=== PATIENT | female | born 1975 | race Caucasian/White ===

== ENCOUNTER 2018-08-24 22:35 | Emergency (ER) | payer SELFPAY ==
--- NOTE | 2018-08-25 00:17 | ER Document Report ---
ED General - General Chief Complaint: Head Injury without LOC Stated Complaint: HEAD INJURY Time Seen by Provider: 08/24/18 23:28 Mode of Arrival: Ambulatory Information source: Patient Notes: 43-year-old female presents emergency department with complaints of a headache. Patient states that around 8 PM she was sitting at a table when she bent down and hit her forehead on the table. She denies any loss of consciousness. She states that immediately she began having a throbbing sensation to her forehead. Patient states that she went home and took some Motrin around 845PM. She states that she began having some blurred vision and feeling nauseated. The headache has continued. Patient denies any speech changes, numbness, tingling, weakness, difficulty ambulating. She states that she is on aspirin but no blood thinners. TRAVEL OUTSIDE OF THE [place] IN LAST 30 DAYS: No - HPI Onset: This evening Onset/Duration: Sudden Quality of pain: Achy Severity: Mild Pain Level: 2 Associated symptoms: Other - blurred vision Exacerbated by: Denies Relieved by: Denies Similar symptoms previously: No Recently seen / treated by doctor: No - Related Data Allergies/Adverse Reactions: cetirizine [From [employer]] Allergy (Verified 08/24/18 23:39) Past Medical History - General Information source: Patient - Social History Smoking Status: Former Smoker Chew tobacco use (# tins/day): No Frequency of alcohol use: Occasional Drug Abuse: None Family History: Reviewed & Not Pertinent Patient has suicidal ideation: No Patient has homicidal ideation: No Pulmonary Medical History: Reports: Hx Asthma Renal/ Medical History: Denies: Hx Peritoneal Dialysis GI Medical History: Reports: Hx Gastroesophageal Reflux Disease Past Surgical History: Reports: Hx Orthopedic Surgery Review of Systems - Review of Systems Constitutional: No symptoms reported EENT: Blurred vision Cardiovascular: No symptoms reported Respiratory: No symptoms reported Gastrointestinal: Nausea Genitourinary: No symptoms reported Female Genitourinary: No symptoms reported Musculoskeletal: No symptoms reported Skin: No symptoms reported Hematologic/Lymphatic: No symptoms reported Neurological/Psychological: No symptoms reported -: Yes All other systems reviewed and negative Physical Exam - Vital signs Vitals: Temp Pulse Resp BP Pulse Ox 98.1 F 75 18 130/86 H 98 08/24/18 22:59 08/24/18 22:59 08/24/18 22:59 08/24/18 22:59 08/24/18 22:59 - Notes Notes: PHYSICAL EXAMINATION: GENERAL: Well-appearing, well-nourished and in no acute distress. HEAD: normocephalic. Pain to the center of the forehead. EYES: Pupils equal round and reactive to light, extraocular movements intact, conjunctiva are normal. ENT: Nares patent, oropharynx clear without exudates. Moist mucous membranes. NECK: Normal range of motion, supple without lymphadenopathy LUNGS: Breath sounds clear to auscultation bilaterally and equal. No wheezes rales or rhonchi. HEART: Regular rate and rhythm without murmurs ABDOMEN: Soft, nontender, nondistended abdomen. No guarding, no rebound. No masses appreciated. Female : deferred Musculoskeletal: Normal range of motion, no pitting or edema. No cyanosis. NEUROLOGICAL: Cranial nerves grossly intact. Normal speech, normal gait. Normal sensory, motor exams PSYCH: Normal mood, normal affect. SKIN: Warm, Dry, normal turgor, no rashes or lesions noted. - HEENT Visual acuity- Right eye: 20/200 Visual acuity- Left eye: 20/200 Visual acuity- Both eyes: 20/200 Corrective lenses worn: No Course - Re-evaluation Re-evalutation: 08/25/18 00:[address] shows left maxillary sinusitis. No acute process. Patient is neurologically intact. Visual acuity obtained and is 20/200 in both eyes. I instructed the patient to followup with ophthalmology and her primary care physician this week, to take [id number] medication as needed for symptom relief, and to return for worsening symptoms. - Vital Signs Vital signs: Temp Pulse Resp BP Pulse Ox 98.1 F 75 18 130/86 H 98 08/24/18 22:59 08/24/18 22:59 08/24/18 22:59 08/24/18 22:59 08/24/18 22:59 Discharge - Discharge Clinical Impression: Concussion Qualifiers: Encounter type: initial encounter Loss of consciousness presence/duration: without LOC Qualified Code(s): S06.0X0A - Concussion without loss of consciousness, initial encounter Condition: Good Disposition: HOME, SELF-CARE Instructions: Concussion (OM) Referrals: CARLEY MARTINEZ MD [ACTIVE STAFF] - Follow up as needed
--- NOTE | 2018-08-25 00:24 | RADIOLOGY REPORT (SQ) ---
EXAM DESCRIPTION: CT HEAD WITHOUT IV CONTRAST COMPLETED DATE/TME: 08/24/2018 23:36 CLINICAL HISTORY: 43 years Female, head trauma, blurred vision COMPARISON: None. TECHNIQUE: No contrast. Coronal and sagittal reformat. This exam was performed according to our departmental dose-optimization program, which includes automated exposure control, adjustment of the mA and/or kV according to patient size and/or use of iterative reconstruction technique. FINDINGS: No hemorrhage or infarct. No mass, mass effect, or midline shift. Moderate left maxillary fluid. Brain and extra-axial structures appear otherwise intact. IMPRESSION: Left maxillary sinusitis with acute inflammatory component (air-fluid level). Else, unremarkable CT of the head.
[2018-08-25] MEDS ORDERED: KETOROLAC TROMETHAMINE 60 MG/2 ML SDV IM ONE (00:29)
[2018-08-25 00:42] VITALS: BP 121/74
== END 2018-08-25 00:51 | disposition home or self-care (01) ==
LOC: ER 22:35
DX: S06.0X0A Concussion without loss of consciousness, initial encounter (principal); H53.8 Other visual disturbances; R11.0 Nausea; W22.03XA Walked into furniture, initial encounter; Y93.89 Activity, other specified; J32.0 Chronic maxillary sinusitis; J45.909 Unspecified asthma, uncomplicated; Z88.8 Allergy status to other drugs, medicaments and biological substances; Z87.891 Personal history of nicotine dependence
CPT/HCPCS: 99283; 96372; 70450; J1885

== ENCOUNTER 2018-09-14 21:56 | Emergency (ER) | payer SELFPAY ==
[2018-09-14 22:23] LABS: ABSOLUTE LYMPHOCYTES (AUTO) 1.1 10^3/uL (0.5-4.7); ABSOLUTE MONOCYTES (AUTO) 0.6 10^3/uL (0.1-1.4); ABSOLUTE NEUT (AUTO) 8.6 10^3/uL (1.7-8.2); BASOPHILS % (AUTO) 0.2 % (0-2); EOSINOPHILS % (AUTO) 0.3 % (0-6); HEMATOCRIT 35.6 % (36.0-47.0); HEMOGLOBIN 12.7 g/dL (12.0-15.5); LYMPHOCYTES % (AUTO) 10.6 % (13-45); MEAN CORPUSCULAR HEMOGLOBIN 31.9 pg (27.0-33.4); MEAN CORPUSCULAR HGB CONC 35.6 g/dL (32.0-36.0); MEAN CORPUSCULAR VOLUME 90 fl (80-97); MONOCYTES % (AUTO) 6.2 % (3-13); PLATELET COUNT 172 10^3/uL (150-450); RED BLOOD COUNT 3.97 10^6/uL (3.72-5.28); RED CELL DISTRIBUTION WIDTH 14.1 % (11.5-14.0); SEGMENTED NEUTROPHILS % (AUTO) 82.7 % (42-78); TOTAL CELLS COUNTED % (AUTO) 100 %; WHITE BLOOD COUNT 10.4 10^3/uL (4.0-10.5)
[2018-09-14] MEDS ORDERED: ASPIRIN 81 MG TABLET, CHEWABLE PO ONE (22:34)
[2018-09-14] MEDS ORDERED: ONDANSETRON 4 MG TAB.RAPDIS PO ONE (22:35)
--- NOTE | 2018-09-14 22:38 | ER Document Report ---
ED Medical Screen (RME) - General Chief Complaint: Chest Pain Stated Complaint: CHEST PAIN Time Seen by Provider: 09/14/18 22:34 Notes: 43-year-old female coming in today with sudden onset of left-sided chest pain that radiates down her left arm, left shoulder, left neck. Also some vomiting. Symptoms started at rest. No shortness of breath. Per patient, small heart attack when she was younger. I have treated and performed a rapid initial assessment of this patient. A comprehensive ED assessment and evaluation of the patient, analysis of test results and completion of medical decision making process will be conducted by additional ED providers. PHYSICAL EXAMINATION: GENERAL: Ill-appearing LUNGS: Breath sounds clear to auscultation bilaterally and equal. No wheezes rales or rhonchi. HEART: Regular rate and rhythm without murmurs, rubs, gallops. Neuro: No focal deficits TRAVEL OUTSIDE OF THE [place] IN LAST 30 DAYS: No - Related Data Allergies/Adverse Reactions: cetirizine [From [employer]] Allergy (Verified 08/24/18 23:39) Past Medical History Pulmonary Medical History: Reports: Hx Asthma Renal/ Medical History: Denies: Hx Peritoneal Dialysis GI Medical History: Reports: Hx Gastroesophageal Reflux Disease Past Surgical History: Reports: Hx Orthopedic Surgery Physical Exam - Vital signs Vitals: Temp Pulse Resp BP 97.6 F 66 14 100/60 09/14/18 22:09 09/14/18 22:09 09/14/18 22:09 09/14/18 22:09 Course - Vital Signs Vital signs: Temp Pulse Resp BP Pulse Ox 97.8 F 86 18 105/63 97 09/14/18 22:32 09/14/18 22:32 09/14/18 22:32 09/14/18 22:32 09/14/18 22:32 - Laboratory Result Diagrams: 09/14/18 22:10 09/14/18 22:10
[2018-09-14 23:14] LABS: ALANINE AMINOTRANSFERASE 20 U/L (9-52); ALBUMIN 3.7 g/dL (3.5-5.0); ALKALINE PHOSPHATASE 67 U/L (38-126); ANION GAP 8 (5-19); ASPARTATE AMINO TRANSFERASE 61 U/L (14-36); BILIRUBIN,DIRECT 0.2 mg/dL (0.0-0.4); BILIRUBIN,TOTAL 0.8 mg/dL (0.2-1.3); BLOOD UREA NITROGEN 16 mg/dL (7-20); CALCIUM 8.6 mg/dL (8.4-10.2); CARBON DIOXIDE 24 mmol/L (22-30); CHLORIDE 105 mmol/L (98-107); GLUCOSE 115 mg/dL (75-110); POTASSIUM 4.1 mmol/L (3.6-5.0); SODIUM 136.9 mmol/L (137-145); TOTAL PROTEIN 6.2 g/dL (6.3-8.2)
[2018-09-14 23:26] LABS: CREATINE KINASE MB 0.28 ng/mL (<4.55)
[2018-09-14 23:30] LABS: TROPONIN I < 0.012 ng/mL
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
--- NOTE | 2018-09-15 01:01 | RADIOLOGY REPORT (SQ) ---
EXAM DESCRIPTION: XR CHEST 1 VIEW COMPLETED DATE/TME: 09/14/2018 23:33 CLINICAL HISTORY: 43 years, Female, CP COMPARISON: None. NUMBER OF VIEWS: 1 TECHNIQUE: Portable chest LIMITATIONS: None. FINDINGS: Heart size normal. Osteopenia. Lungs are clear. No pneumothorax IMPRESSION: Negative chest copyright 2010 [email or web address]- All Rights Reserved
[2018-09-15] MEDS ORDERED: MULTIVITAMIN TABLET PO ONE (02:58)
[2018-09-15] MEDS ORDERED: FOLIC ACID INJ 5 MG/1 ML 10 ML VIAL IV ONE (02:58)
[2018-09-15 02:59] VITALS: BP 108/77
[2018-09-15] MEDS ORDERED: THIAMINE HCL 500 MG in NORMAL SALINE 250 ML IV SCH (03:00)
--- NOTE | 2018-09-15 07:34 | EKG REPORT ---
SEVERITY:- NORMAL ECG - SINUS RHYTHM : Confirmed by: Spike George MD 15-Sep-2018 07:33:27
--- NOTE | 2018-09-15 07:37 | EKG REPORT ---
SEVERITY:- ABNORMAL ECG - SINUS RHYTHM PVC : Confirmed by: Spike George MD 15-Sep-2018 07:36:42
== END 2018-09-15 03:10 | disposition home or self-care (01) ==
LOC: ER 21:56
DX: R07.9 Chest pain, unspecified (principal); M79.602 Pain in left arm; W21.11XA Struck by baseball bat, initial encounter; Z87.891 Personal history of nicotine dependence; J45.909 Unspecified asthma, uncomplicated
CPT/HCPCS: 93005 ×2; 99285; 36415; 82553; 83690; 85025; 80053; 84484; 71045; 93010 ×2; S0119